=== PATIENT | male | born 1950 | race Caucasian/White ===

== ENCOUNTER → 2023-11-01 11:52 | Outpatient (CLI) | payer OTHER, SELFPAY ==
--- NOTE | 2023-11-01 | DI.MRI.S_ITS ---
PROCEDURE: MRFOOT LT WO CON INDICATIONS: Pain in left foot TECHNIQUE: Noncontrast sagittal T1 spin echo and T2 fast spin echo with fat saturation, long-axis T1 spin echo and T2 fast spin echo with fat saturation, short-axis T1 spin echo and T2 fast spin echo with fat saturation through the forefoot. COMPARISON: None. FINDINGS: Image quality: Excellent. Bones and joints: Moderate to severe midfoot and forefoot joint osteoarthritic changes are seen most notably involving 2nd and 3rd TMT joints with complete loss of joint space, extensive subchondral sclerosis, edema and subcortical cystic changes as well as prominent dorsal marginal osteophyte formation. Marrow edema is noted involving 2nd metatarsal shaft with questionable linear hypointense signal at 2nd metatarsal base, a subtle stress fracture cannot be entirely excluded. No other fracture or dislocation is seen. Soft tissues: The visualized plantar foot muscles demonstrate normal signal and bulk. Visualized flexor and extensor tendons appear intact, without tenosynovitis. The distal insertions of the peroneus brevis and longus tendons appear intact. The principal Lisfranc ligament appears thickened with intrasubstance T2 hyperintense signal. No soft tissue ganglion cysts or bursal fluid collections. IMPRESSION: 1. 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 Marrow edema is seen in 2nd metatarsal shaft and base with questionable subtle linear hypointense signal concerning for subtle nondisplaced stress fracture in this area suggest clinical correlation and follow-up. No other fracture or dislocation. 2. Extensor and flexor tendons of midfoot and forefoot are intact. Lisfranc ligament is thickened suggestive of ligament sprain/partial-thickness tear. Dictated by: Jarett Crain M.D. on 11/02/2023 at 13:39 Approved by: Jarett Crain M.D. on 11/02/2023 at 13:43
== END ==
PROVIDERS: Referring Provider Podiatrist; Visit Provider Podiatrist
DX: M19.072 Primary osteoarthritis, left ankle and foot (principal); M79.672 Pain in left foot
CPT/HCPCS: 73718